=== PATIENT | female | born 1985 | race Caucasian/White ===

== ENCOUNTER 2017-11-06 12:10 | Inpatient (IN) | payer OTHER ==
[~2017-11-06] VITALS: Ht 160 cm; Wt 103.0 kg
[2017-11-06 13:26] LABS: BASOPHILS # (AUTO) 0.1 X10'3 (0-0.2); BASOPHILS % (AUTO) 0.6 % (0-1); EOSINOPHILS # (AUTO) 0.2 X10'3 (0-0.9); HEMATOCRIT 40.8 % (35.0-45.0); HEMOGLOBIN 14.1 g/dl (12.0-16.0); LYMPHOCYTES # (AUTO) 2.4 X10'3 (1.1-4.8); LYMPHOCYTES % (AUTO) 24.3 % (21-51); MEAN CORPUSCULAR HEMOGLOBIN 29.3 PG (27.0-31.0); MEAN CORPUSCULAR HGB CONC 34.5 % (33.0-36.5); MEAN PLATELET VOLUME 11.6 FL (7.4-10.4); MONOCYTES # (AUTO) 0.5 X10'3 (0-0.9); MONOCYTES % (AUTO) 4.9 % (2-12); NEUTROPHILS # (AUTO) 6.8 X10'3 (1.8-7.7); NEUTROPHILS % (AUTO) 68.2 % (42-75); PLATELET COUNT 221 X10'3 (140-440); RED CELL DISTRIBUTION WIDTH 12.9 % (11.5-14.5); WHITE BLOOD COUNT 9.9 X10'3 (4.5-11.0)
[2017-11-06 13:30] LABS: INR 0.9 INR; PARTIAL THROMBOPLASTIN TIME 25 SECONDS (22-32); PROTHROMBIN TIME 9.8 SECONDS (9.0-12.0)
[2017-11-06 13:34] LABS: ALANINE AMINOTRANSFERASE 28 U/L (12-78); ALBUMIN 3.6 G/DL (3.4-5.0); ALKALINE PHOSPHATASE 117 IU/L (46-116); ANION GAP 6 (8-16); ASPARTATE AMINO TRANSFERASE 14 U/L (10-37); BILIRUBIN,TOTAL 0.4 MG/DL (0.1-1.0); BLOOD UREA NITROGEN 13 MG/DL (7-18); BUN/CREATININE RATIO 20.6 (6.6-38.0); CALCIUM 8.8 MG/DL (8.5-10.1); CHLORIDE 102 MMOL/L (99-107); CREATININE 0.63 MG/DL (0.40-0.90); GLUCOSE 229 MG/DL (70-104); POTASSIUM 4.4 MMOL/L (3.5-5.1); SODIUM 136 MMOL/L (135-145); TOTAL CARBON DIOXIDE 28.4 MMOL/L (24-32); TOTAL PROTEIN 7.1 G/DL (6.4-8.2); eGFR > 90 ML/MIN
[2017-11-06] MEDS ORDERED: insulin regular, human 10 units/0.1 ml syringe SQ ONE (16:10)
[2017-11-06] MEDS ORDERED: normal saline 1000ml 1,000 ML IV ONE (16:15)
[2017-11-06 16:54] LABS: CLARITY,URINE SLIGHTLY CLOUDY (Clear); COLOR,URINE YELLOW (Yellow); GLUCOSE, URINE >=1000 mg/dl (Neg); KETONES,URINE TRACE mg/dl (Neg); LEUKOCYTE ESTERASE ,URINE NEGATIVE (Neg); NITRITES, URINE NEGATIVE (Neg); OCCULT BLOOD,URINE NEGATIVE (Neg); PROTEIN,URINE NEGATIVE (Neg); UROBILINOGEN,URINE 0.2 E.U/dL (0.2-1.0)
[2017-11-06 16:58] LABS: UA COLLECTION TYPE CLN CATCH MIDSTREAM
[2017-11-06 17:07] LABS: BACTERIA,URINE NONE SEEN /HPF (Neg); RBC,URINE NONE SEEN /HPF (0-2); SQUAMOUS EPITHELIAL CELL,UR MODERATE /LPF (FEW)
[2017-11-06] MEDS ORDERED: mag hydrox/Alum hydrox/simeth 30ml oral suspension PO PRN (17:45)
[2017-11-06] MEDS ORDERED: bisacodyl 10mg suppository rectal RC PRN (17:45)
[2017-11-06] MEDS ORDERED: acetaminophen 325mg tablet PO PRN ×2 (17:45)
[2017-11-06] MEDS ORDERED: HYDROcodone/acetaminophen 5mg/325mg tablet PO PRN (17:45)
[2017-11-06] MEDS ORDERED: magnesium hydroxide 30ml (MOM) UD suspension PO PRN (17:45)
[2017-11-06] MEDS ORDERED: HYDROcodone/acetaminophen 10/325mg tab PO PRN (17:45)
[2017-11-06] MEDS: normal saline 1000ml 1,000 ML IV SCH (18:22)
[2017-11-06] MEDS ORDERED: regadenoson 0.4mg/5ml syringe IV ONE (18:25)
[2017-11-06] MEDS ORDERED: aminophylline 250mg/10ml inj. IV PRN (18:25)
[2017-11-06] MEDS ORDERED: metoprolol tartrate 1mg/ml inj IV PRN (18:25)
[2017-11-06] MEDS ORDERED: nitroGLYCERIN 0.4mg SUBLingual tab SL PRN (18:25)
[2017-11-06] MEDS ORDERED: LIRA0.6P2 PO (18:33)
[2017-11-06] MEDS ORDERED: OSEL75CA17 PO (18:33)
[2017-11-06] MEDS ORDERED: INSU200I4 SQ (18:33)
[2017-11-06] MEDS ORDERED: insulin Lispro (HumaLOG) vial - multi-dose SQ SCH (18:35)
[2017-11-06] MEDS ORDERED: dextrose ORAL solution 15 GM/59 ML bottle PO PRN ×2 (18:35)
[2017-11-06] MEDS ORDERED: dextrose 50%-water 50ml dispensing syringe IV PRN ×2 (18:35)
[2017-11-06] MEDS ORDERED: MESSAGE TO PHARMACY PO ONE (18:35)
[2017-11-06] MEDS ORDERED: glucagon, human recombinant 1mg kit SUBCUT PRN (18:35)
[2017-11-06] MEDS ORDERED: ALPH100C PO (18:36)
[2017-11-06] MEDS ORDERED: MAGN500C16 PO (18:36)
[2017-11-06] MEDS ORDERED: oseltamivir phos 75mg capsule PO SCH (18:40)
[2017-11-06] MEDS: pantoprazole 40 MG vial IV SCH (18:58)
[2017-11-06 19:00] VITALS: BP 120/76
[2017-11-06 19:02] LABS: HEMOGLOBIN A1C 10.1 % (4.5-6.2)
[2017-11-06 20:00] VITALS: BP_SYST 106; BP_SYST 114; BP_SYST 115; BP_DIAS 53; BP_DIAS 71; BP_DIAS 84
[2017-11-06] MEDS ORDERED: heparin, porcine 5000 units/ml vial SQ SCH (20:00)
[2017-11-06] MEDS: heparin, porcine 5000 units/ml vial SQ SCH (20:33)
[2017-11-06] MEDS: docusate sod 100mg capsule PO SCH (20:34)
[2017-11-06] MEDS ORDERED: temazepam 15mg capsule PO PRN (21:00)
[2017-11-06] MEDS ORDERED: insulin glargine (Lantus) pen - multi-dose SQ SCH (21:00)
[2017-11-06] MEDS: ondansetron/PF 4mg/2ml inj IV PRN (21:16)
[2017-11-06 23:00] VITALS: BP 106/53
[2017-11-07] VITALS (10 sets, daily range): BP systolic 114–130; BP diastolic 69–93
[2017-11-07 01:44] LABS: PARTIAL THROMBOPLASTIN TIME 26 SECONDS (22-32); PROTHROMBIN TIME 9.9 SECONDS (9.0-12.0)
[2017-11-07 01:45] LABS: BASOPHILS % (AUTO) 0.5 % (0-1); EOSINOPHILS # (AUTO) 0.1 X10'3 (0-0.9); EOSINOPHILS % (AUTO) 1.3 % (0-6); HEMATOCRIT 37.4 % (35.0-45.0); LYMPHOCYTES # (AUTO) 2.8 X10'3 (1.1-4.8); LYMPHOCYTES % (AUTO) 29.5 % (21-51); MEAN CORPUSCULAR HEMOGLOBIN 29.7 PG (27.0-31.0); MEAN CORPUSCULAR HGB CONC 34.6 % (33.0-36.5); MEAN CORPUSCULAR VOLUME 85.7 FL (78-98); MEAN PLATELET VOLUME 11.5 FL (7.4-10.4); MONOCYTES # (AUTO) 0.4 X10'3 (0-0.9); MONOCYTES % (AUTO) 4.4 % (2-12); NEUTROPHILS # (AUTO) 6.2 X10'3 (1.8-7.7); NEUTROPHILS % (AUTO) 64.3 % (42-75); PLATELET COUNT 211 X10'3 (140-440); RED BLOOD COUNT 4.37 X10'6 (4.20-5.60); RED CELL DISTRIBUTION WIDTH 12.4 % (11.5-14.5); WHITE BLOOD COUNT 9.5 X10'3 (4.5-11.0)
[2017-11-07 01:52] LABS: ALBUMIN 2.8 G/DL (3.4-5.0); ANION GAP 10 (8-16); BLOOD UREA NITROGEN 9 MG/DL (7-18); BUN/CREATININE RATIO 16.7 (6.6-38.0); CALCIUM 8.2 MG/DL (8.5-10.1); CHLORIDE 106 MMOL/L (99-107); CHOL/HDL RATIO 4.2 (0.00-4.99); CHOLESTEROL 163 MG/DL (0-200); CREATININE 0.54 MG/DL (0.40-0.90); GLUCOSE 135 MG/DL (70-104); HDL CHOLESTEROL 39 MG/DL (35-60); LDL CHOLESTEROL 105 MG/DL (50-100); MAGNESIUM 1.4 MG/DL (1.5-2.4); POTASSIUM 3.5 MMOL/L (3.5-5.1); SODIUM 142 MMOL/L (135-145); TOTAL CARBON DIOXIDE 26.1 MMOL/L (24-32); TRIGLYCERIDES 216 MG/DL (20-135); eGFR > 90 ML/MIN
[2017-11-07] MEDS ORDERED: magnesium Cl slow-release 64mg tablet PO PRN (02:10)
[2017-11-07] MEDS ORDERED: potassium Cl 40MEQ/NS 500ml 500 ML IV PRN ×2 (02:10)
[2017-11-07] MEDS ORDERED: magnesium 4gm in 100ml NS 100 ML IV PRN (02:10)
[2017-11-07] MEDS ORDERED: magnesium 2GM in 50ml NS 50 ML IV PRN (02:10)
[2017-11-07] MEDS ORDERED: potassium Cl 20 mEq SR tablet PO PRN ×2 (02:10)
[2017-11-07] MEDS: normal saline 1000ml 1,000 ML IV SCH ×2 (03:44→13:44)
[2017-11-07] MEDS: ondansetron/PF 4mg/2ml inj IV PRN (06:20)
[2017-11-07] MEDS ORDERED: magnesium oxide 400mg tablet PO SCH (08:00)
[2017-11-07] MEDS: pantoprazole 40 MG vial IV SCH (08:09)
[2017-11-07] MEDS: docusate sod 100mg capsule PO SCH (08:09)
[2017-11-07] MEDS: heparin, porcine 5000 units/ml vial SQ SCH (08:10)
[2017-11-07] MEDS ORDERED: aminophylline inj. 0 ML IV ONE (08:49)
[2017-11-07] MEDS ORDERED: regadenoson 0.4mg/5ml syringe IV ONE (08:49)
[2017-11-07] MEDS ORDERED: ASPI81TA52 PO (14:19)
[2017-11-08] MEDS ORDERED: pantoprazole 40mg Tablet.DR PO SCH (07:30)
== END 2017-11-07 15:55 | disposition home or self-care (01) | DRG 392 ==
LOC: ER 12:11 → ED HOLD 17:44 → PCU 3S 19:55
PROVIDERS: ADMIT Family Medicine; ATTEND Legal Medicine
PROC: C21YYZZ Planar Nuclear Medicine Imaging of Heart using Other Radionuclide (ICD-10-PCS; principal; 2017-11-07)
DX: K21.9 Gastro-esophageal reflux disease without esophagitis (principal); G70.00 Myasthenia gravis without (acute) exacerbation; R13.10 Dysphagia, unspecified; I49.8 Other specified cardiac arrhythmias; E11.9 Type 2 diabetes mellitus without complications; I10 Essential (primary) hypertension; R42 Dizziness and giddiness; R60.0 Localized edema; E78.5 Hyperlipidemia, unspecified; J45.909 Unspecified asthma, uncomplicated; F17.210 Nicotine dependence, cigarettes, uncomplicated; Z72.89 Other problems related to lifestyle; Z79.4 Long term (current) use of insulin; Z86.718 Personal history of other venous thrombosis and embolism; Z82.3 Family history of stroke; Z82.41 Family history of sudden cardiac death; Z83.3 Family history of diabetes mellitus
CPT/HCPCS: 36415; 70551; 71045; 78452; 80048; 80053; 80061; 81001; 82948; 83036; 83605; 83735; 84484; 85025; 85610; 85730; 87070; 87088; 93005; 93017; 93306; 93880; 96360; 96372; 97116; 97161; 97530; 99285; A9500; C9113; J0280; J1644; J1815; J2405; J7030

== ENCOUNTER 2020-10-31 18:08 | Emergency (ER) | payer OTHER ==
[~2020-10-31] VITALS: Ht 157.5 cm; Wt 83.9 kg
[~2020-10-31 18:08] MED LIST: ALPH100C PO; ASPI81TA52 PO; INSU200I4 SQ; LIRA0.6P2 PO; MAGN500C16 PO; OSEL75CA17 PO
[2020-10-31] MEDS ORDERED: ketorolac tromethamine 15mg/ml inj. IM ONE (21:10)
[2020-10-31] MEDS ORDERED: CYCL-1 PO (21:11)
[2020-10-31 21:28] VITALS: BP 150/102
== END 2020-10-31 21:30 | disposition home or self-care (01) ==
LOC: ER 18:09
DX: G44.209 Tension-type headache, unspecified, not intractable (principal); E78.00 Pure hypercholesterolemia, unspecified; I10 Essential (primary) hypertension; J45.909 Unspecified asthma, uncomplicated; E11.9 Type 2 diabetes mellitus without complications; G51.0 Bell's palsy; Z86.718 Personal history of other venous thrombosis and embolism; Z98.891 History of uterine scar from previous surgery; Z79.82 Long term (current) use of aspirin
CPT/HCPCS: 70450; 96372; 99284; J1885